=== PATIENT | female | born 1945 | race Caucasian/White ===

== ENCOUNTER 2018-01-28 05:41 | Day surgery (SDC) | payer OTHER, MEDICARE ==
[~2018-01-28] VITALS: Ht 160 cm; Wt 73.9 kg
--- NOTE | ~2018-01-28 | O ---
[facility] [address] OPERATIVE REPORT Name: ANDREA CORNELL Room #: DEP [facility]#: [id number] Admission: 01/28/18 Attend Phys: Gurinder Parham MD Discharge: 01/28/18 Date of : 41 Report #: [id number] THIS REPORT FOR: //name// CC: DR RADHA TOMAS Physician staff Gurinder Parham DATE OF SERVICE: 01/28/2018 SURGEON: Gurinder Parham MD COPY COORDINATOR: None. PREOPERATIVE DIAGNOSIS: Bilateral upper lid dermatochalasia with superior visual field defect. POSTOPERATIVE DIAGNOSIS: Bilateral upper lid dermatochalasia with superior visual field defect. OPERATION PERFORMED: Bilateral upper lid functional blepharoplasty. ANESTHESIA: Local with IV sedation. COMPLICATIONS: None. INDICATIONS FOR SURGERY: This patient has acquired upper lid dermatochalasia with superior visual field loss both eyes because of excessive upper lid tissues to include skin and fat. Visual field testing demonstrates dense superior visual defects. Retesting with the upper lid elevated shows an improvement in visual field loss of over 30% and in excess of 12 degrees. The current procedures are undertaken in order to improve the patient's visual function. Informed consent was obtained to include but not limited to the loss of vision, bleeding, infection, scarring, failure to improve the problem and need for further surgery. DESCRIPTION OF OPERATION: The patient was taken to the operating room, where 2% Xylocaine with epinephrine mixed with equal parts of 0.75% Marcaine with Wydase was administered transcutaneously to each upper lid. The patient was then prepped and draped in the usual sterile fashion and a skin-marking pen was then utilized to outline an upper lid crease that was symmetrical on each side. Graefe forceps were then used to quantitate the redundant upper lid skin and it was similarly outlined. The incisions were then made with Hermila scissors and a skin-muscle flap removed from each side with high-temp cautery. [address] [address] OPERATIVE REPORT Name: ANDREA CORNELL Room #: DEP [facility].#: [id number] Admission: 01/28/18 Attend Phys: Gurinder Parham MD Discharge: 01/28/18 Date of : 41 Report #: [id number] was achieved with the monopolar cautery as it was throughout the case. The orbital septum was then identified and the central and medial fat pads were inspected. The redundant soft tissue was then sculpted with the monopolar cautery. The upper lid crease was then reformed with tightening of the pretarsal orbicularis muscle. The upper lid crease was then further reformed with multiple interrupted 6-0 chromic sutures. The skin was then closed with a running 6-0 plain gut suture. The wound was then cleaned and dressed with ophthalmic antibiotic ointment and a nonstick dressing. The patient was transported to the recovery area, where cold compresses were applied, having tolerated the procedure well with no anesthetic or operative complications being noted. By: 0822 0927 Gurinder Parham MD /nt
[~2018-01-28 05:41] MED LIST: CALCIUM 500 +1 EAC5 PO; ICAPS MV TABLE1 EAC1 PO; MAXZIDE-25 MG1 EACH PO; PROBIOTIC1 EAC1 PO; TYLENOL PM EX-1 EACH PO; VITAMIN E400 UNI2 PO; ZINC30 M1 PO
[2018-01-28 07:45] VITALS: BP 123/60
== END 2018-01-28 09:08 | disposition home or self-care (01) ==
LOC: TBA 05:41 → OR 05:41
DX: H02.834 Dermatochalasis of left upper eyelid (principal); H02.831 Dermatochalasis of right upper eyelid; H53.40 Unspecified visual field defects; I10 Essential (primary) hypertension; K21.9 Gastro-esophageal reflux disease without esophagitis; Z88.8 Allergy status to other drugs, medicaments and biological substances; Z79.899 Other long term (current) drug therapy; Z85.828 Personal history of other malignant neoplasm of skin; Z98.890 Other specified postprocedural states
CPT/HCPCS: 50010; 50101; 50386; 50398; 51636; 56531; 70005

== ENCOUNTER → 2018-03-05 | Outpatient (CLI) | payer OTHER, MEDICARE ==
[~2018-03-05] VITALS: Ht 160 cm; Wt 73.9 kg
--- NOTE | 2018-03-08 08:27 | P ---
[facility] [place] [address] PROCEDURE REPORT Name: ANDREA CORNELL Room #: REG [facility]#: [id number] Admission: 03/05/18 Attend Phys: Patrick Aguilar Discharge: Date of : 41 Report #: [id number] THIS REPORT FOR: //name// CC: Patrick TOMAS Physician staff DATE OF SERVICE: 03/05/2018 PROCEDURE PERFORMED: Colonoscopy with biopsies. HISTORY OF PRESENT ILLNESS: The patient is a 72-year-old female who was seen in the office on 02/04/2018 with a history of recurrent diverticulitis, began having left lower quadrant abdominal pain in April of last year, was treated with several rounds of antibiotics for suspected diverticulitis, previous history of C. diff colitis 8 years ago. Last colonoscopy was in 2004 by different gastroenterologists. She does have a family history of colon cancer in her father. Plan is for colonoscopy. DESCRIPTION OF PROCEDURE: The risks and benefits of the procedure were explained to the patient, those risks including but not limited to bleeding, perforation, the risk of sedation. She understood these risks and gave informed consent. Sedation was given using propofol per Anesthesia. Next, a digital rectal exam was initially performed, which was normal. Next, using a standard Olympus colonoscope, the scope was placed in the patient's anus and advanced under direct vision to the cecum. The overall prep was good. The cecum and ileocecal valve were normal in appearance. The ascending colon showed a few small diverticula, no evidence of inflammation, otherwise normal. The transverse colon was normal. In the descending colon, a 5 mm sessile polyp was noted. This was removed with cold forceps, otherwise normal. Multiple diverticula were noted throughout the sigmoid colon, no evidence of inflammation. The rectal mucosa was normal. On retroflexion, small nonbleeding internal hemorrhoids were noted. The scope was then withdrawn. Small external hemorrhoids were also noted. The procedure terminated. The patient tolerated the procedure well. IMPRESSION: 1. A few scattered diverticula in the ascending colon. 2. Multiple diverticula in the left colon, primarily sigmoid colon. 3. Small descending colon polyp removed. 4. Internal and external hemorrhoids. RECOMMENDATIONS: 1. Await biopsy results. 2. Repeat colonoscopy in 5 years. 3. Recommend high fiber diet. [address] [address] PROCEDURE REPORT Name: ANDREA CORNELL Room #: REG [facility]#: [id number] Admission: 03/05/18 Attend Phys: Patrick Aguilar Discharge: Date of : 41 Report #: [id number] Thank you for allowing me to participate in her care. <ELECTRONICALLY SIGNED> By: Patrick Fagan MD 03/08/18 0827 0932 1115 Patrick Fagan MD /nt
--- NOTE | 2018-03-08 15:06 | PATH ---
[facility] [address] [place] [address] PATHOLOGY RPT PROCEDURE Name: CARRIE CORNELL [id number] Admission: 03/05/18 Date of : 41 Discharge: Report #: [id number] Path Case #: [id number] [facility] Accession Number: [id number] . 01 Material submitted: . POLYP DESCENDING COLON . 01 Clinical history: . Diverticulitis Colon polyp, diverticulosis, hemorrhoids . 02 Diagnosis: Polyp, descending colon polyp, endoscopic biopsy: - Tubular adenoma. - Negative for high grade dysplasia. . (IUV:at;03/08/2018) QTA/03/08/2018 . 02 Electronically signed: . Tammy Edmond MD, Pathologist NPI- [id number] . 01 Gross description: . The specimen is received in formalin, labeled "Devora, Carrie, polyp descending colon" and consists of a fragment of barnard-brown tissue measuring 0.5 x 0.3 x 0.1 cm which is entirely submitted in A1. (SDY; 03/05/2018) SYU/SYU . 02 Pathologist provided ICD-10: D12.4 . 02 CPT . 251705 Specimen Comment: A courtesy copy of this report has been sent to Specimen Comment: [phone]. Specimen Comment: Report sent to Performed at: [address], [place] [id number] MD Jose Elias Taylor MD Phone: [phone] Performed at: [address] [id number] MD Tammy Edmond MD Phone: [phone]
== END | disposition home or self-care (01) ==
LOC: GI 07:24
DX: K63.5 Polyp of colon (principal); K57.30 Diverticulosis of large intestine without perforation or abscess without bleeding; K64.8 Other hemorrhoids; K64.4 Residual hemorrhoidal skin tags; Z80.0 Family history of malignant neoplasm of digestive organs; I10 Essential (primary) hypertension; K21.9 Gastro-esophageal reflux disease without esophagitis; Z87.19 Personal history of other diseases of the digestive system; Z85.828 Personal history of other malignant neoplasm of skin; Z98.890 Other specified postprocedural states; Z79.899 Other long term (current) drug therapy; Z88.8 Allergy status to other drugs, medicaments and biological substances
CPT/HCPCS: 62110; 62900